=== PATIENT | female | born 1965 | race Hispanic/Latino ===

== ENCOUNTER 2020-12-05 17:32 | Emergency (ER) | payer OTHER, SELFPAY ==
--- NOTE | ~2020-12-05 | XR_ITS ---
EXAMINATION: XR chest 2V 12/05/2020 18:26 INDICATION: Status post fall. Chest pain. PROCEDURE: PA and lateral views of the chest COMPARISON: 11/22/2015 FINDINGS: The lungs are clear. Status post median sternotomy for CABG. There is a prosthetic heart va lve. There are epicardial pacing leads. The cardiomediastinal silhouette is within normal limits. Th ere are no pleural effusions. There is no pneumothorax suspected. IMPRESSION: 1: NO ACUTE CARDIOPULMONARY DISEASE. Reviewed, dictated and finalized at location A.
[2020-12-05 18:08] VITALS: BP 142/80; PULSE 65; RESP 16; TEMP 36.1; O2SAT 100
[2020-12-05 20:03] VITALS: PULSE 82; RESP 16; TEMP 36.4; O2SAT 98
--- NOTE | 2020-12-05 20:13 | ED.FALL ---
HPI - Fall General Chief Complaint: Fall Stated Complaint: FALL, STUCK CHEST, HX OPEN HEART 22SEPT Time Seen by Provider: 12/05/20 19:24 History of Present Illness HPI Narrative: Patient is a 55-year-old female who presents ER status post fall. She was walking tripped and fell onto her left chest. Patient underwent aortic valve replacement in October of this year. Her and her are concerned she may have injured her sternotomy wires. She is having no occultly breathing. No chest pain at this time. No discomfort over her surgical scar. She did not strike her head or lose consciousness. Related Data Home Medications Medication Instructions Recorded Confirmed escitalopram oxalate 5 mg tablet 5 mg PO DAILY 02/27/20 02/29/20 Allergies Allergy/AdvReac Type Severity Reaction Status Date / Time No Known Allergies Allergy Mild Verified 12/05/20 20:03 Review of Systems Review of Systems: All systems reviewed & are unremarkable except as noted in HPI and below Cardiovascular: Cardiovascular: Denies chest pain and Denies radiating jaw, neck or arm pain Respiratory: Respiratory: Denies cough, Denies dyspnea and Denies wheezing Musculoskeletal: Musculoskeletal: Denies back pain, Denies arthralgias and Denies joint swelling Neurologic: Denies syncope and Denies headache(s) [facility] Past Medical History Medical History (Updated 12/05/20 @ 20:24 by Gerry Rebollar MD) BMI 33.0-33.9,adult Depression Dietary counseling and surveillance (01/15/15) Heart valve disease Lipid screening Tonsillar abscess Tonsillectomy planned Viral gastroenteritis Surgical History Surgical History (Updated 12/05/20 @ 20:14 by Gerry Rebollar MD) H/O aortic valve replacement Family History Family History Mother Hypertension Family history of diabetes mellitus in first degree relative Father No problems noted. Sibling No problems noted. 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 HEAD: Normocephalic, atraumatic. CHEST: Clear to auscultation. No respiratory distress. Well-healing midline scar that is nontender. HEART: Regular rate and rhythm. Normal peripheral pulses. NEURO: Alert and oriented x3. PSYCH: Normal mood and affect. Course Course Emergency Course: Informed of results. Discharge home. Vital Signs Vital signs: Vital Signs Temperature 97 F L 12/05/20 18:08 Pulse Rate 65 12/05/20 18:08 Respiratory Rate 16 12/05/20 18:08 Blood Pressure 142/80 H 12/05/20 18:08 Pulse Oximetry 100 12/05/20 18:08 Temperature 97.5 F L 12/05/20 20:03 Pulse Rate 82 12/05/20 20:03 Respiratory Rate 16 12/05/20 20:03 Blood Pressure 142/80 H 12/05/20 18:08 Pulse Oximetry 98 12/05/20 20:03 MDM - Fall Imaging Data Radiologist's impression: ITS Impressions Chest X-Ray 12/05/20 18:28 IMPRESSION: 1: NO ACUTE CARDIOPULMONARY DISEASE. Discharge Plan Discharge Clinical Impression: Chest wall pain Patient Disposition: Home, Self-Care Condition: Stable Instructions: Chest Wall Pain (ED) Additional Instructions: Return to the ER if you have chest pain with exertion, you cannot breathe, you develop fever over 100.4 ?F, you have additional concerns. Prescriptions: No Action escitalopram oxalate 5 mg tablet 5 mg PO DAILY RF: 0 terbinafine HCl 250 mg tablet 250 mg PO DAILY Qty: 44 RF: 0 Follow-up/Referrals: Hector Omalley MD [Primary Care Provider] - 1 Week
[2020-12-05 20:45] VITALS: BP 131/81; PULSE 81; RESP 16; TEMP 36.7; O2SAT 99
== END 2020-12-05 20:45 | disposition home or self-care (01) ==
PROVIDERS: Emergency Provider Emergency Medicine; PCP Family Medicine
DX: R07.89 Other chest pain (principal); F32.9 Major depressive disorder, single episode, unspecified; I38 Endocarditis, valve unspecified; Z95.2 Presence of prosthetic heart valve; W01.0XXA Fall on same level from slipping, tripping and stumbling without subsequent striking against object, initial encounter
CPT/HCPCS: 71046; 99283

== ENCOUNTER 2023-07-04 08:30 | Emergency (ER) | payer BC, SELFPAY ==
--- NOTE | 2023-07-04 08:44 | ED.BACK ---
HPI - Back Pain/Injury General Chief Complaint: Back Pain/Injury Stated Complaint: Lower Back Pain Time Seen by Provider: 07/04/23 08:44 Source: patient, RN notes reviewed and old records reviewed Mode of arrival: ambulatory Limitations: no limitations History of Present Illness HPI Narrative: 57-year-old female presents to the [facility] with complaints of low back pain with movement. Also reports a burning with urination 1 week. Patient denies any loss retention of bowel bladder. Denies any midline tenderness Related Data Home Medications Medication Instructions Recorded Confirmed aspirin 81 mg tablet,delayed 81 mg PO DAILY 12/10/20 07/04/23 release (Adult Low Dose Aspirin) escitalopram oxalate 5 mg tablet 20 mg PO DAILY 08/03/22 07/04/23 atorvastatin 10 mg tablet 10 mg PO DAILY 05/27/23 07/04/23 Allergies Allergy/AdvReac Type Severity Reaction Status Date / Time No Known Allergies Allergy Mild Verified 07/04/23 08:37 Review of Systems Review of Systems: All systems reviewed & are unremarkable except as noted in HPI and below Constitutional: Constitutional: Reports no additional constitutional complaints Eyes: Eyes: Reports no additional eye complaints ENT: Reports system reviewed and no additional complaints, except as documented Cardiovascular: Cardiovascular: Reports no additional cardiovascular complaints, Denies chest pain and Denies dyspnea Respiratory: Respiratory: Reports no additional respiratory complaints, Denies chest congestion, Denies cough and Denies dyspnea Gastrointestinal: Gastrointestinal: Reports no additional gastrointestinal complaints, Denies abdominal pain, Denies nausea and Denies vomiting Genitourinary: Genitourinary: Reports as per HPI Musculoskeletal: Musculoskeletal: Reports as per HPI Integumentary/Breasts: Skin/Breast: Reports system reviewed and no additional complaints, except as docu Neurologic: Reports system reviewed and no additional complaints, except as documented Psychiatric: Psychiatric: Reports no additional psychiatric complaints Allergic/Immunologic: Allergic/Immunologic: Reports no additional allergic/immunologic complaints [facility] Past Medical History Medical History BMI 33.0-33.9,adult Depression Dietary counseling and surveillance (01/15/15) Heart valve disease Lipid screening Poison alex dermatitis Tonsillar abscess Tonsillectomy planned Viral gastroenteritis Surgical History Surgical History H/O aortic valve replacement Family History Family History Mother Hypertension Family history of diabetes mellitus in first degree relative Father No problems noted. Sibling No problems noted. 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 There is no relevant family history pertinent to the patient complaint. Exam Const: General: cooperative, healthy appearing, comfortable, no acute distress, well developed, alert and well nourished Nutritional Appearance: well nourished Orientation/consciousness: patient oriented x3 Limitations: no limitations HENMT: Head: normal to inspection Ears: hearing grossly normal bilaterally and external ears normal Face/Nose/Sinus: Normal external nose present, Normal nares present, Normal nasal mucous membranes and turbinates
[2023-07-04 08:48] VITALS: BP 133/81; PULSE 61; RESP 16; TEMP 36.7; O2SAT 100
== END 2023-07-04 09:20 | disposition home or self-care (01) ==
PROVIDERS: Emergency Provider Nurse Practitioner; PCP Family Medicine
DX: S39.012A Strain of muscle, fascia and tendon of lower back, initial encounter (principal); X58.XXXA Exposure to other specified factors, initial encounter; N39.0 Urinary tract infection, site not specified; F32.A Depression, unspecified; Z95.2 Presence of prosthetic heart valve; Z79.82 Long term (current) use of aspirin
CPT/HCPCS: 81003; 87086; 87088; 99213; G0463

== ENCOUNTER 2023-09-10 09:45 | Outpatient (RCR) | payer BC, SELFPAY ==
--- NOTE | 2023-07-31 11:33 | PTOPEVAL1 ---
Assessment and note entered by Lora Asencio, PT Evaluation Information Assessment Status Evaluation Diagnosis Low Back Pain Onset insidious Subjective Information Pt reports pain to small of her back which was gradually getting worse. The backpain was at its peak 3 weeks ago, went to [facility] and was diagnosed with UTI, but she reports that even after taking ABT, her pain persisted. Noticed increased difficulty in getting up from bed, experienced increased stiffness in the morning and states that walking helps to loosen up. She walks daily for about 30-45min. Reports that sitting/standing for long periods of time (watching TV, washing dishes) also increased the pain, and feeling of tightness ; she tries to perform seated weight shifting and push up with her arms to some of the pressure off. The back pain also limited her ability to perform yard work/gardening which is her favorite hobby. Denies any radiating pain to her LEs. Assessment PT Clinical Summary Pt is a 57 yo female who presents to therapy with LBP, weakness to gluteal and core muscles, decreased standing and walking tolerance, difficulty with lifting and bending and experiences radicular symptoms when sitting for long periods of time. She will greatly benefit from continued skilled PT to address deficits, improve functional mobility, improve endurance, acquire knowledge on exercises, proper body mechanics and positioning to be able to perform IADLs pain-free and improve quality of life. Plan of Care Interventions Electrical Stimulation,Gait Training,Hot Pack/Cold Pack,Manual Therapy,Neuro Re-education,Patient/ Caregiver Education,Therapeutic Activities, Therapeutic Exercise,Ultrasound PT Services Indicated Yes Treatment Frequency and 2x/week x 10 visits Duration These treatments will address the objective and functional deficits as defined above. The patient will be advanced safely and appropriately in order for the patient to progress towards his/her prior level of function. Additional exercises will be introduced and as well as a comprehensive home exercise program upon discharge, if needed, ?to ensure carryover of functional gains achieved in the clinic. This treatment plan has been reviewed and agreement upon by the patient.
--- NOTE | 2023-07-31 11:34 | OPREHPOC ---
Outpatient Therapy Plan of Care This is a Multidisciplinary Plan of Care that may contain components documented by all disciplines (PT, OT, and ST.) PT Problem 1 PT Problem #1 Knowledge Deficit PT Goal 1 Goal Pt will understand and perform HEPs regarding core strengthening, proper body mechanics, proper lifting techniques independently. Target Visit 10 PT Problem 2 PT Problem #2 Pain PT Goal 1 Goal Pt will report pain levels of 1/10 when performing standing tasks of > 5 min in duration. Target Visit 10 PT Problem 3 PT Problem #3 Impaired Balance PT Goal 1 Goal Pt will perform Single - Leg - Stance - Test x 10 seconds or more per LE without increased pain to indicate lower all-cause mortality risk and lower risk for falls. Target Visit 10 PT Problem 4 PT Problem #4 Impaired Functional Mobil PT Goal 1 Goal Pt will demo proper body mechanics and proper lifting techniques with objects weighing 10# or more. Target Visit 10
--- NOTE | 2023-08-27 10:08 | PCPTNOTE ---
No call no show, reason unknown. AKJosee
--- NOTE | 2023-09-14 09:44 | PCPTNOTE ---
pt did not show for today's reeval appt. Called and left message, to call for appt if need additional therapy.
--- NOTE | 2023-10-18 09:31 | PTOPDC ---
Assessment and note entered by Danielle Garrido, PT Discharge Report Assessment Status Discharge - Pt Not Present Diagnosis Low Back Pain Onset insidious Subjective Information pt did not show for today's reevaluation appointment. Assessment PT Clinical Summary Lisette has received 6 PT sessions, from July 30 to August 09. She did not show for 3 appointments. Discharge PT at this time, due to not attending. The goals were not addressed. Plan of Care PT Services Indicated No
== END 2023-10-18 11:30 | disposition home or self-care (01) ==
LOC: ANHPT 09:45
PROVIDERS: PCP Family Medicine; Visit Provider Physician Assistant Medical
DX: M54.50 Low back pain, unspecified (principal)
CPT/HCPCS: 97110; 97161; 97530